=== PATIENT | female | born 1985 | race Caucasian/White ===

== ENCOUNTER → 2019-07-08 | Outpatient (REF) | payer OTHER | LOC: M SFHCLERA 10:00 | PROVIDERS: ATTEND Physician Assistant | DX: R50.9 Fever, unspecified (principal) ==

== ENCOUNTER 2020-02-09 11:17 | Observation (INO) | payer OTHER ==
[~2020-02-09] VITALS: Ht 160 cm; Wt 115.0 kg
[2020-02-09] MEDS ORDERED: MIRE1IUD IU ×2 (11:25→21:45)
[2020-02-09 13:34] LABS: BASO # 0.1 10^3/uL (0.0-0.2); BASO % 0.5 % (0.0-1.0); EOS # 0.3 10^3/uL (0.0-0.5); EOS % 2.9 % (0.0-3.0); HEMATOCRIT 42.7 % (36.0-47.0); HEMOGLOBIN 14.2 g/dl (12.0-15.5); LYMPH # 2.2 10^3/uL (1.5-5.0); LYMPH % 20.7 % (24.0-44.0); MEAN CORPUSCULAR HEMOGLOBIN 30.7 pg (27.0-33.0); MEAN CORPUSCULAR HGB CONC 33.3 g/dl (32.0-36.5); MEAN CORPUSCULAR VOLUME 92.2 fl (80.0-96.0); MONO # 0.7 10^3/uL (0.0-0.8); MONO % 6.4 % (0.0-5.0); NEUTROPHILS # 7.4 10^3/uL (1.5-8.5); NEUTROPHILS % 68.9 % (36.0-66.0); PLATELET COUNT, AUTOMATED 322 10^3/uL (150-450); RED BLOOD COUNT 4.63 10^6/uL (4.00-5.40); WHITE BLOOD COUNT 10.8 10^3/uL (4.0-10.0)
[2020-02-09 14:02] LABS: HCG, SERUM QUALITATIVE NEGATIVE (NEGATIVE)
[2020-02-09 14:40] LABS: ALBUMIN 3.9 GM/DL (3.2-5.2); ALT/SGPT 39 U/L (12-78); BILIRUBIN,TOTAL 0.5 MG/DL (0.2-1.0); BLOOD UREA NITROGEN 11 MG/DL (7-18); C REACTIVE PROTEIN QUANTITATIV 0.37 MG/DL (0.00-0.30); CALCIUM LEVEL 9.7 MG/DL (8.5-10.1); CARBON DIOXIDE LEVEL 25 MEQ/L (21-32); CHLORIDE LEVEL 108 MEQ/L (98-107); CREATININE FOR GFR 0.76 MG/DL (0.55-1.30); GLOMERULAR FILTRATION RATE > 60.0 (>60); GLUCOSE, FASTING 88 MG/DL (70-100); POTASSIUM SERUM 3.9 MEQ/L (3.5-5.1); SODIUM LEVEL 140 MEQ/L (136-145); TOTAL PROTEIN 7.7 GM/DL (6.4-8.2)
[2020-02-09 14:51] LABS: ERYTHROCYTE SEDIMENTATION RATE 16 mm/hr (0-20)
[2020-02-09] MEDS ORDERED: PROHANCE 279.3MG/ML 5ML VIAL As Ordered ONE (15:44)
[2020-02-09] MEDS ORDERED: PROHANCE 279.3MG/ML 15ML VIAL As Ordered ONE (15:44)
--- NOTE | 2020-02-09 16:09 | REPVR ---
PROCEDURE INFORMATION: Exam: MR Angiogram Head Without Contrast, Venogram Exam date and time: 02/09/2020 12:47 PM Age: 34 years old Clinical indication: Visual disturbance; Other visual defect; Additional info: R sided papilledema optic n mrv please TECHNIQUE: Imaging protocol: MR angiogram of the head without contrast. Exam focused on the veins. COMPARISON: No relevant prior studies available. FINDINGS: Superior sagittal sinus: There is dominant drainage of the sagittal and straight sinus to the right lateral sinus. There is poor visualization of the right lateral sinus posterolaterally and follow-up CT venogram is recommended to ensure that this represents flow artifact. Straight sinus: Patent. Internal cerebral and cortical veins: Unremarkable as visualized. Transverse sinuses: Patent. Sigmoid sinuses: Patent. Internal jugular veins: Visualized segment patent. IMPRESSION: There is dominant drainage of the sagittal and straight sinus to the right lateral sinus. There is poor visualization of the right lateral sinus posterolaterally and follow-up CT venogram is recommended to ensure that this represents flow artifact. Electronically signed by: Edy Villalobos On 02/09/2020 16:09:11 PM
--- NOTE | 2020-02-09 17:39 | REPVR ---
PROCEDURE INFORMATION: Exam: MR Head Without and With Contrast Exam date and time: 02/09/2020 4:38 PM Age: 34 years old Clinical indication: Visual disturbance; Additional info: R sided papilledema optic n TECHNIQUE: Imaging protocol: MR of the head without and with intravenous contrast. Contrast material: PROHANCE; Contrast volume: 20 ml; Contrast route: INTRAVENOUS (IV); COMPARISON: MRA BRAIN W/O CONTRAST 02/09/2020 3:49 PM FINDINGS: Brain: No intracranial hemorrhage or extra-axial fluid collection. No evidence of mass effect or midline shift. No white matter abnormalities. No restricted diffusion to suggest acute infarct. No abnormal intracranial enhancement. Ventricles: Ventricles, cisterns, and sulci are normal. Bones/joints: Unremarkable. Sinuses: Unremarkable. Mastoid air cells: No mastoid effusion. Orbits: Unremarkable. Soft tissues: Unremarkable. IMPRESSION: No acute intracranial findings. Electronically signed by: Shahbaz Reich On 02/09/2020 17:38:50 PM
--- NOTE | 2020-02-09 17:42 | REPVR ---
PROCEDURE INFORMATION: Exam: MR Orbit Without and With Contrast Exam date and time: 02/09/2020 4:38 PM Age: 34 years old Clinical indication: Visual changes or disturbances; Other: Papilledema; Additional info: R sided papilledema optic n mrv please TECHNIQUE: Imaging protocol: MR Orbit was performed without and with intravenous contrast. 3D rendering (Not supervised by radiologist): MIP and/or 3D reconstructed images were created by the technologist. Contrast material: PROHANCE; Contrast volume: 20 ml; Contrast route: INTRAVENOUS (IV); COMPARISON: No relevant prior studies available. FINDINGS: Limitations: Examination is limited by motion artifact. Orbits: Globes are intact. No definite flattening of the posterior aspect of the globes. Optic nerves are intact. Optic tracts are normal. Optic chiasm is normal. No definite abnormal enhancement within the orbits. Sinuses: Unremarkable. No air-fluid levels. Soft tissues: Unremarkable. Other findings: Subtle flattening of the pituitary gland within the sella. IMPRESSION: 1. Subtle flattening of the pituitary gland within the sella. Finding is nonspecific though could suggest elevated intracranial pressure. Follow-up at the discretion of neurology. 2. No acute findings in the orbits. Electronically signed by: Shahbaz Reich On 02/09/2020 17:41:53 PM
[2020-02-09] MEDS ORDERED: ISOVUE-370 76% 100ML VIAL As Ordered ONE (18:24)
--- NOTE | 2020-02-09 18:58 | REPVR ---
PROCEDURE INFORMATION: Exam: CT Angiography Head With Contrast Exam date and time: 02/09/2020 6:44 PM Age: 34 years old Clinical indication: Abnormal findings; Abnormal mri of head; Additional info: Concern on mri with drainage of sag/straight sinus TECHNIQUE: Imaging protocol: Computed tomography angiography of the head with intravenous contrast, using venogram protocol. 3D rendering (Not supervised by radiologist): MIP and/or 3D reconstructed images were created by the technologist. Radiation optimization: All CT scans at this facility use at least one of these dose optimization techniques: automated exposure control; mA and/or kV adjustment per patient size (includes targeted exams where dose is matched to clinical indication); or iterative reconstruction. Contrast material: ISOVUE 370; Contrast volume: 100 ml; Contrast route: INTRAVENOUS (IV); COMPARISON: MRA BRAIN W/O CONTRAST 02/09/2020 3:49 PM FINDINGS: Superior sagittal sinus is patent. Straight sinus is patent. Internal cerebral veins are patent. Veins of Cisco are patent. Right transverse and sigmoid sinuses are patent and dominant. Small caliber though otherwise patent left transverse and sigmoid sinuses. Visualized portions of the left internal jugular veins are patent. IMPRESSION: No CTV evidence of dural venous sinus thrombosis. Electronically signed by: Shahbaz Reich On 02/09/2020 18:58:08 PM
[2020-02-09] MEDS ORDERED: ACETAMINOPHEN 500 MG TAB PO ONE (19:30)
[2020-02-09] MEDS ORDERED: NS 1,000 ML IV ONE (19:30)
[2020-02-09] MEDS ORDERED: METOCLOPRAMIDE INJ 10MG/2ML VIAL (J2765 PER 1) IV ONE (19:30)
[2020-02-09] MEDS ORDERED: ACETAMINOPHEN TAB 650MG DOSE (2X325MG) PO PRN (21:30)
[2020-02-09] MEDS ORDERED: EXCETAB33 PO (21:45)
[2020-02-09] MEDS ORDERED: VITMTA PO (21:45)
--- NOTE | 2020-02-09 22:00 | HPEPDOC ---
General Date of Admission Feb 09, 2020 at 21:25 Date of Service: Feb 09, 2020 Attending Physician: KIRILL PÉREZ MD Chief Complaint The patient is a 34-year-old female admitted with a reason for visit of Intracranial Pressure Increased, Vision Problems. Source: Patient Exam Limitations: No limitations Timing/Duration: Changing over time Associated Symptoms: Other (episodic vision disturbances) History of Present Illness 34 yo W with no significant past medical history, morbidly obese who was sent in from a routine optometry appointment for noted R papilledema with corroborated history of chronic episodic right vision haziness, sometimes silver spots, shadows and bursts of color without any history of eye pain, corrective lenses or vision loss. While in the ED her intraocular pressures were wnl and her BP wnl. Dr. Lambert (ophthalmology) was consulted by the ED and recommended outpatient follow up for this seemingly chronic problem. While in the ED, she was otherwise normotensive, afebrile and had no complaints of recent congestion, vision changes, fever, chills, rhinorrhea, tearing or eye discharge. WBC was 10.8, hgb 14.2, Cr 0.76, electrolytes, LFTs and ESR wnl. She had a MRI brain without acute intracranial findings, MRA brain without contrast that showed dominant drainage of the sagittal and straight sinus to the R lateral sinus with poor visualization of the R lateral sinus posterolaterally for which radiology recommended a follow up CT venogram. She had a CTA head without contrast that showed no dural venous sinus thrombosis or other acute abnormalities. She also had a MRI of her orbit with and without contrast that showed subtle flattening of the pituitary sella that could suggest elevate intracranial pressure and on discussion with Dr. Perez (neurology) he recommended an LP by IR for which she is now admitted under observation to have performed tomorrow. She otherwise while in the ED, transiently developed a mild headache that resolved after reglan. She is now admitted to medicine with plan for an LP tomorrow per neurology recommend ation. Home Medications Miscellaneous Medications Levonorgestrel (Mirena) 1 Each Iud, 20 MCG IU, (Reported) Allergies Coded Allergies: No Known Drug Allergies (Verified Allergy, Unknown, 02/09/20) Past Medical History Medical History Morbid obesity Surgical History None Family History Significant Family History: No pertinent family hx Social History * Smoker: Denies Alcohol: Denies Drugs: denies Recent Travel/Sick Contacts: Denies: Recent travel, Recent sick contacts Psychosocial History: No pertinent psych hx A-FIB/CHADSVASC A-FIB History Current/History of A-Fib/PAF?: No Current PO Anticoag Therapy: No Age/Risk Factor Scoring CHADSVASC: CHADSVASC Response (Comments) Value Age Risk Factor Age < 65 years old 0 Gender Risk Factor Female 1 Hx of CHF No 0 Hx of HTN No 0 Hx of Stroke/TIA/or VTE No 0 Hx of Diabetes No 0 Hx of Vascular Disease No 0 Total 1 Treatment Treatment ordered: NONE Reason Anticoagulant not given: Not indicated/[id number] Review of Systems Constitutional: Denies: Chills, Fever, Night Sweats Eyes: Reports: Vision change (episodic haziness, silver spots, shadows and bursts of color as described in the HPI); Denies: Pain ENT: Reports: Head Aches (endorsed a history of chornic mild migraines) Skin: Denies: Rash, Lesions, Breakdown Pulmonary: Denies: Dyspnea, Cough Cardiovascular: Denies: Chest Pain, Palpitations, Orthopnea, Paroxysmal Noc. Dyspnea, Lt Headedness Gastrointestinal: Denies: Nausea, Vomiting, Abdominal Pain, Diarrhea Genitourinary: Denies: Dysuria, Frequency, Incontinence, Retention Hematologic: Denies: Bruising, Bleeding Excessively Endocrine: Denies: Polydipsia, Polyphagia, Polyuria, Heat Intolerance, Cold Intolerance, Other Endocrine Sx Musculoskeletal: Denies: Neck Pain, Back Pain, Joint Pain, Muscle Pain, Spasms Neurological: Denies: Weakness, Numbness, Change in speech, Confusion Psych: Reports: Mood Normal; Denies: Depression, Memory Issues Physical Examination General Exam: Positive: Alert, No Acute Distress Eye Exam: Positive: PERRLA, Conjunctiva & lids normal, EOMI; Negative: Sclera icteric ENT Exam: Positive: Atraumatic, Mucous membr. moist/pink, Pharynx Normal Neck Exam: Positive: Supple; Negative: JVD, thyromegaly Chest Exam: Positive: Clear to auscultation, Normal air movement Heart Exam: Positive: Rate Normal, Regular Rhythm, Normal S1, Normal S2; Negative: Murmurs, Rubs Telemetry: Positive: No significant arrhythmia Abdomen Exam: Positive: Normal bowel sounds, Soft; Negative: Tenderness, Hepatospenomegaly Extremity Exam: Positive: Normal pulses; Negative: Clubbing, Cyanosis, Edema Skin Exam: Positive: Nl turgor and temperature; Negative: Breakdown, Lesion Neuro Exam: Positive: Normal Gait, Normal Speech, Strength at 5/5 X4 ext, Nor mal Tone, Sensation Intact, Cranial Nerves 3-12 NL Psych Exam: Positive: Mental status NL, Mood NL, Oriented x 3 Vital Signs Vital Signs Date Time Temp Pulse Resp B/P (MAP) Pulse Ox O2 Delivery O2 Flow Rate FiO2 02/09/20 21:14 97.7 85 18 119/69 (86) 100 Room Air Laboratory Data Labs 24H Laboratory Tests 2 02/09/20 12:47: Immature Granulocyte % (Auto) 0.6, Neutrophils (%) (Auto) 68.9H, Lymphocytes (%) (Auto) 20.7L, Monocytes (%) (Auto) 6.4H, Eosinophils (%) (Auto) 2.9, Basophils (%) (Auto) 0.5, Neutrophils # (Auto) 7.4, Lymphocytes # (Auto) 2.2, Monocytes # (Auto) 0.7, Eosinophils # (Auto) 0.3, Basophils # (Auto) 0.1, Nucleated Red Blood Cells % (auto) 0.0, Erythrocyte Sedimentation Rate 16, Anion Gap 7L, Glomerular Filtration Rate > 60.0, Calcium Level 9.7, Total Bilirubin 0.5, Aspartate Amino Transf (AST/SGOT) 16, Alanine Aminotransferase (ALT/SGPT) 39, Alkaline Phosphatase 149H, C-Reactive Protein, Quantitative 0.37H, Total Protein 7.7, Albumin 3.9, Albumin/Globulin Ratio 1.0L 02/09/20 12:51: Human Chorionic Gonadotropin, Qual NEGATIVE CBC/BMP Laboratory Tests 02/09/20 12:47 Assessment/Plan 34 yo W with no significant past medical history, morbidly obese who was sent in from a routine optometry appointment for noted R papilledema with corroborated history of chronic episodic right vision haziness, sometimes silver spots, shadows and bursts of color without any history of eye pain, corrective lenses or vision loss and extensive imaging that was mostly within normal limits except for potential mild elevation of intracranial pressure as suggested by MR of the orbit for which she is now admitted per recommendation of neurology for an LP with plan for outpatient ophthalmology follow up. Episodic R eye vision disturbances with noted papilledema with c/f elevated ICP -consult neurology, placed order, Dr. Perez suggested LP to the ED, day team to contact Dr. Perez in the morning. There was no acute indication for calling him overnight after he gave recommendations to the ED. -IR request for LP has been placed -MRI brain wnl -MRA with possibl sinus drainage --> CTA without dural venous thrombosis or other noted pathology -MR of orbits were wnl except some noted flattening of the sells for which is now pending an LP for c/f elevated ICP DVT ppx: TEDs Diet: regular Dispo: obs, likely to be discharged within the next 24-48h. Plan / VTE VTE Prophylaxis Ordered?: Yes KIRILL PÉREZ MD Feb 09, 2020 21:59
[2020-02-09 22:30] VITALS: BP 138/90
[2020-02-10 06:00] VITALS: BP 110/79
[2020-02-10 06:19] LABS: HEMOGLOBIN 13.2 g/dl (12.0-15.5); MEAN CORPUSCULAR HEMOGLOBIN 30.5 pg (27.0-33.0); MEAN CORPUSCULAR VOLUME 92.4 fl (80.0-96.0); PLATELET COUNT, AUTOMATED 300 10^3/uL (150-450); RED BLOOD COUNT 4.33 10^6/uL (4.00-5.40); WHITE BLOOD COUNT 8.8 10^3/uL (4.0-10.0)
[2020-02-10 06:33] LABS: BLOOD UREA NITROGEN 11 MG/DL (7-18); CALCIUM LEVEL 8.7 MG/DL (8.5-10.1); CARBON DIOXIDE LEVEL 27 MEQ/L (21-32); CHLORIDE LEVEL 108 MEQ/L (98-107); GLOMERULAR FILTRATION RATE > 60.0 (>60); GLUCOSE, FASTING 82 MG/DL (70-100); SODIUM LEVEL 141 MEQ/L (136-145)
[2020-02-10 08:45] LABS: INR 1.01; PROTHROMBIN TIME 13.6 SECONDS (11.8-14.0)
[2020-02-10] MEDS ORDERED: ENOXAPARIN 40MG/0.4ML SYRINGE (J1650 PER 10MG) SC SCH (09:00)
--- NOTE | 2020-02-10 13:19 | IPNPDOC ---
Text Note Date of Service The patient was seen on 02/10/20. NOTE S: Patient seen and examined at bedside. No medical complaints this morning. Denies any changes in vision. O: General: NAD, lying comfortably in bed HEENT: NC/AT, EOMI, PERRL Lungs: CTA B/L Heart: +S1S2, RRR Abd: obese, soft, NT, +BS Ext: no edema A/P: 34 yo W with no significant past medical history, morbidly obese who was sent in from a routine optometry appointment for noted R papilledema with corroborated history of chronic episodic right vision haziness, sometimes silver spots, shadows and bursts of color without any history of eye pain, corrective lenses or vision loss and extensive imaging that was mostly within normal limits except for potential mild elevation of intracranial pressure as suggested by MR of the orbit for which she is now admitted per recommendation of neurology for an LP with plan for outpatient ophthalmology follow up. #Episodic R eye vision disturbances with noted papilledema with c/f elevated ICP - d/w neurology - assistance appreciated - plan for LP - obtain opening pressure in lateral decub position - possible pseudotumor cerebri -MRI brain wnl -MRA with possible sinus drainage --> CTA without dural venous thrombosis or other noted pathology -MR of orbits were wnl except some noted flattening of the sells for which is now pending an LP for c/f elevated ICP #morbid obesity - complicates medical care DVT ppx: TEDs Diet: regular VS,Fishbone, I+O VS, Fishbone, I+O Laboratory Tests 02/10/20 05:38 Vital Signs Date Time Temp Pulse Resp B/P (MAP) Pulse Ox O2 Delivery O2 Flow Rate FiO2 02/10/20 06:00 97.8 80 18 110/79 (89) 97 Room Air I&O- Last 24 Hours up to 6 AM 02/10/20 06:00 Intake Total 1000 ml Output Total 650 ml Balance 350 ml ASHLEIGH CISNEROS MD Feb 10, 2020 13:19
[2020-02-10 14:00] VITALS: BP 115/69
[2020-02-10 14:43] LABS: APPEARANCE, CSF CLEAR (CLEAR); COLOR, CSF COLORLESS (COLORLESS); CSF TUBE# CELL CNT TUBE 1; CSF TUBE# CELL CNT TUBE 4; CSF TUBE# GLU TUBE 2; CSF TUBE# TP TUBE 2; GLUCOSE CSF 59 MG/DL (40-75); TOTAL PROTEIN,CSF 38 MG/DL (15-45)
[2020-02-10] MEDS ORDERED: TOPA1TAB PO (16:47)
--- NOTE | 2020-02-10 16:52 | DS.PDOC ---
Discharge Summary General Date of Admission Feb 09, 2020 at 21:25 Date of Discharge 02/10/20 Specialist/Consultants Involve neurology, dr. perez Discharge Summary PROCEDURES PERFORMED DURING STAY: Lumbar puncture ADMITTING DIAGNOSES: 1. possible pseudotumor cerebri COMPLICATIONS/CHIEF COMPLAINT: Intracranial Pressure Increased, Vision Problems. HISTORY OF PRESENT ILLNESS: 34 yo W with no significant past medical history, morbidly obese who was sent in from a routine optometry appointment for noted R papilledema with corroborated history of chronic episodic right vision haziness, sometimes silver spots, shadows and bursts of color without any history of eye pain, corrective lenses or vision loss. While in the ED her intraocular pressures were wnl and her BP wnl. Dr. Lambert (ophthalmology) was consulted by the ED and recommended outpatient follow up for this seemingly chronic problem. While in the ED, she was otherwise normotensive, afebrile and had no complaints of recent congestion, vision changes, fever, chills, rhinorrhea, tearing or eye discharge. WBC was 10.8, hgb 14.2, Cr 0.76, electrolytes, LFTs and ESR wnl. She had a MRI brain without acute intracranial findings, MRA brain without contrast that showed dominant drainage of the sagittal and straight sinus to the R lateral sinus with poor visualization of the R lateral sinus posterolaterally for which radiology recommended a follow up CT venogram. She had a CTA head without contrast that showed no dural venous sinus thrombosis or other acute abnormalities. She also had a MRI of her orbit with and without contrast that showed subtle flattening of the pituitary sella that could suggest elevate intracranial pressure and on discussion with Dr. Perez (neurology) he recommended an LP by IR for which she is now admitted under observation to have performed tomorrow. She otherwise while in the ED, transiently developed a mild headache that resolved after reglan. She is now admitted to medicine with plan for an LP tomorrow per neurology recommendation. HOSPITAL COURSE: Concern for pseudotomor cerebri. Patient underwent lumbar puncture, opening pressure 27, closing pressure 20. Patient had no further visual symptoms. Discussed with neurology, recommendations for discharge home, outpatient follow up, and topamax 25 qhx x 1 week, then 50 mg qhs. DISCHARGE MEDICATIONS: Please see below. ALLERGIES: Please see below. PHYSICAL EXAMINATION ON DISCHARGE: VITAL SIGNS: Please see below. GENERAL: NAD, lying comfortably in bed HEENT: NC/AT, EOMI, PERRL Lungs; CTA B/L Heart: +S1S2, RRR Abd: soft, obese, NT, +BS LABORATORY DATA: Please see below. ACTIVITY: [As tolerated]. DISCHARGE PLAN: Discharge home DISCHARGE INSTRUCTIONS: 1. PCP in 3-5 days 2. neurology as scheduled 3. ophthalmology as scheduled DISCHARGE CONDITION: [Stable]. TIME SPENT ON DISCHARGE: 35minutes. Vital Signs/I&Os Vital Signs Date Time Temp Pulse Resp B/P (MAP) Pulse Ox O2 Delivery O2 Flow Rate FiO2 02/10/20 14:00 99.2 86 16 115/69 (84) 97 Room Air I&O- Last 24 Hours up to 6 AM 02/10/20 06:00 Intake Total 1000 ml Output Total 650 ml Balance 350 ml Laboratory Data Labs 24H Laboratory Tests 2 02/10/20 05:38: Nucleated Red Blood Cells % (auto) 0.0, Anion Gap 6L, Glomerular Filtration Rate > 60.0, Calcium Level 8.7 02/10/20 08:07: Prothrombin Time 13.6, Prothromb Time International Ratio 1.01 02/10/20 13:08: CSF Appearance CLEAR, CSF Color COLORLESS, CSF WBC (Auto) < 1, CSF RBC (Auto) < 2H, CSF Glucose (Tube 1) TUBE 2, CSF Total Protein (Tube 1) TUBE 2, CSF Cell Count Tube # TUBE 4, CSF Polynuclear WBCs (%) , CSF Glucose 59, CSF Total Protein 38 CBC/BMP Laboratory Tests 02/10/20 05:38 Discharge Medications Scheduled Levonorgestrel (Mirena) 1 Each Iud, 20 MCG IU ASDIRECTED, (Reported) INSERTED IN NOVEMBER 2018 Multivitamins (Thera M Plus Tablet) 1 Each Tablet, 1 TAB PO DAILY, (Reported) Topiramate (Topamax) 25 Mg Tablet, 25 MG PO QHS one tablet each evening for one week, then two tablets each evening Scheduled PRN Aspirin/Acetaminophen/Caffeine (Excedrin Migraine Caplet) 1 Each Tablet, 2 TAB PO BID PRN for MIGRAINE, (Reported) Allergies Coded Allergies: No Known Drug Allergies (Verified Allergy, Unknown, 02/09/20) ASHLEIGH CISNEROS MD Feb 10, 2020 16:52
--- NOTE | 2020-02-22 14:48 | REP ---
FLUORO GUIDANCE FOR LUMBAR PUNCTURE: The procedure was performed under the direct supervision of Dr. Leon. The risks and benefits of the procedure were explained to the patient and informed consent was obtained. The L3-4 interspace was localized using fluoroscopic guidance. The skin was prepped and draped in a sterile fashion. 1% Lidocaine was used as a local anesthetic. Using fluoroscopic guidance a 22 gauge spinal needle was inserted and advanced into the thecal sac. Opening pressure measures 27cm of water. 12cc of spinal fluid was withdrawn and sent to the lab for analysis. Closing pressure measured 20cm of water. The patient tolerated the procedure well and there were no immediate complications. After the appropriate amount of monitored convalescence, the patient was discharged from the department. 0.1 minutes of fluoroscopy time was utilized for this procedure. ZEINAB
--- NOTE | 2020-02-25 11:13 | CR ---
DATE OF CONSULTATION: 02/10/2020 REFERRING PHYSICIAN: Mohan Steele MD REASON FOR CONSULTATION: Vision disturbances. HISTORY OF PRESENT ILLNESS: Ingrid Ellis is a 34-year-old woman with history of migraines for several years. Migraines occur once every other month. Migraines are frontal, throbbing, pressure-like and lasting for a couple of hours with sometimes visual aura. Migraines are associated photophobia and phonophobia. The patient states that six months ago she started having vision disturbances. These have increased over the last couple of months. She feels haziness, silver spots, shadows and bursts of colors without any eye pain or visual loss. This can be brought on sometimes by standing up from sitting position. Bearing down or Valsalva does not produce these symptoms. She also feels fullness in her ears sometimes. These symptoms last for a couple of minutes at a time and can happen once to a few times a day. There is no associated headache, visual loss or eye pain. She went to see account specialist, who felt that the patient had swelling in right optic nerve and referred her to emergency department. Dr. Lambert was consulted by emergency department, who recommended outpatient follow up due to chronic nature of her problems. He recommended MRI brain, orbit and MRV of brain. MRI brain and orbit were reviewed and were unremarkable. MRV of brain showed poor visualization of right lateral sinus. CTV was recommended, which was reportedly unremarkable. I recommended spinal tap to rule out pseudotumor cerebri. Her spinal tap showed opening pressure 27 cm of water pressure today with normal total protein 38, glucose 59 with less than 1 WBC and less than 2 RBCs. The patient has intermittent neck pain and back pain. She denied dysphagia, heartburn, diplopia, urinary incontinence, falls or loss of consciousness. PAST MEDICAL HISTORY: 1. Migraines. 2. Obesity. SOCIAL HISTORY: She denies smoking, alcohol or illicit drugs. She is and has three children. Her is in . REVIEW OF SYSTEMS: All systems were reviewed and found to be noncontributory, except as mentioned in history of present illness. ALLERGIES: None. CURRENT MEDICATIONS: Mirena intrauterine contraceptive device. PHYSICAL EXAMINATION: Temperature 99.2, pulse 86, respiratory rate 16, blood pressure 115/69, 97% oxygen saturation on room. Heart: Regular rate and rhythm. Lungs: Clear to auscultation. Abdomen: Soft, nontender, non-distended. No pedal edema. No musculoskeletal abnormalities. No rash. No signs of meningeal irritation. No tremor, dysmetria, nystagmus. The patient is awake, alert, oriented to place, person and time. Normal speech, comprehension and repetition. Recent and distant memory is intact. Visual march are full to confrontation. Extraocular muscles are intact. No visual weakness. Tongue and uvula midline. 5/5 strength in all four extremities. Deep tendon reflexes are 1+ throughout. Normal sensation bilaterally and throughout. Gait is normal. ASSESSMENT: 1. Migraine aura, ocular migraines and visual snow are in the differential diagnosis. 2. Concern for right-sided papilledema, although her spinal tap opening pressure is borderline, 27 cm of water pressure. 3. Optic disk drusen are the differential diagnosis. PLAN: 1. The patient should be referred to ophthalmology. Dr. Lambert was consulted by emergency department and recommended outpatient follow up. 2. Topamax 25 mg by mouth q.h.s. and gradually increase it. Will use a low- dose as the patient had one kidney stone during her second . 3. Diamox will only be considered if papilledema is confirmed. Her spinal tap opening pressure is borderline and she does not have frequent headaches and eye abnormality is only detected in right eye. 4. Follow with our office in two weeks after hospital discharge. ZEINAB
== END 2020-02-10 18:00 | disposition home or self-care (01) ==
LOC: M ED 11:17 → M ED INP 21:25 → ENRESERV 22:08 → M MS5PR 22:46
PROVIDERS: ADMIT Internal Medicine; ATTEND Internal Medicine
DX: H47.11 Papilledema associated with increased intracranial pressure (principal); H53.9 Unspecified visual disturbance; R51 Headache; E66.01 Morbid (severe) obesity due to excess calories; Z68.42 Body mass index [BMI] 45.0-49.9, adult; Z79.899 Other long term (current) drug therapy; Z97.5 Presence of (intrauterine) contraceptive device
CPT/HCPCS: 36415; 62328; 70496; 70543; 70544; 70553; 77002; 80048; 80053; 82945; 84157; 84703; 85025; 85027; 85610; 85652; 86140; 89050; 96361; 96374; 99284; A9576; J2765; Q9967